=== PATIENT | female | born 1970 | race Caucasian/White ===

== ENCOUNTER 2019-06-30 12:05 | Emergency (ER) | payer BC, OTHER ==
[~2019-06-30] VITALS: Ht 177.8 cm; Wt 83.9 kg
[2019-06-30 12:16] VITALS: BP 111/69
[2019-06-30] MEDS ORDERED: FLUORESCEIN SOD 1 MG TEST STRIP OP ONE (14:00)
[2019-06-30] MEDS ORDERED: TETRACAINE HCL 0.5% OPTH(EYE) SOLN 4ML EACHEYE ONE (14:00)
== END 2019-06-30 14:46 | disposition home or self-care (01) ==
LOC: ER 12:05
DX: T15.01XA Foreign body in cornea, right eye, initial encounter (principal); H18.821 Corneal disorder due to contact lens, right eye; H10.31 Unspecified acute conjunctivitis, right eye; X58.XXXA Exposure to other specified factors, initial encounter; Y93.89 Activity, other specified; Y92.89 Other specified places as the place of occurrence of the external cause; Y99.8 Other external cause status